=== PATIENT | female | born 1940 | race Two or more races ===

== ENCOUNTER 2017-08-01 15:35 | Inpatient (IN) | payer MEDICARE, OTHER ==
[~2017-08-01] VITALS: Ht 165.1 cm; Wt 57.8 kg
--- NOTE | 2017-08-01 15:40 | NUR ---
BIB [facility] C/O SOB, SPO2=84% ON RA, PLACED ON NR AT 15L/MIN NOW SPO2=99%. TACHYPNEIC. ASSISTED TO HOSPITAL GOWN. PLACED ON MONITOR. PATIENT WAS DISCHARGED YESTERDAY AT [facility] FOR [facility]. DR TABARES AT FOR EVAL.
[2017-08-01 15:54] LABS: BASOPHILS # (AUTO) 0.2 /CMM (0.0-0.2); BASOPHILS % (AUTO) 1.1 % (0.0-2.0); HEMATOCRIT 34 % (33-45); HEMOGLOBIN 10.9 g/dL (11.5-14.8); LYMPHOCYTES # (AUTO) 0.5 /CMM (0.8-4.8); LYMPHOCYTES % (AUTO) 2.9 % (20.0-44.0); MEAN CORPUSCULAR HEMOGLOBIN 25 PG (26.0-33.0); MEAN CORPUSCULAR HGB CONC 32 g/dl (31.0-36.0); MEAN CORPUSCULAR VOLUME 78 fL (82-100); MONOCYTES # (AUTO) 0.8 /CMM (0.1-1.30); MONOCYTES % (AUTO) 4.6 % (2.0-12.0); NEUTROPHILS # (AUTO) 16.6 /CMM (1.8-8.9); NEUTROPHILS % (AUTO) 91.4 % (43.0-81.0); PLATELET COUNT (AUTO) 552 /CMM (150-450); RDW COEFFICIENT OF VARIATION 15.6 (11.5-15.0); RED BLOOD CELL COUNT(AUTO) 4.34 MIL/uL (4.0-5.2); WHITE BLOOD COUNT (AUTO) 18.1 K/uL (4.3-11.0)
[2017-08-01] MEDS ORDERED: IV NS 0.9% 500 ML BAG IV ONE (16:00)
[2017-08-01] MEDS ORDERED: SUCCINYLCHOLINE CHLORIDE 20 MG/ML VIAL IV ONE (16:00)
[2017-08-01] MEDS ORDERED: ETOMIDATE 2 MG/ML VIAL IV ONE (16:00)
--- NOTE | 2017-08-01 16:03 | NUR ---
PATIENT TRANSPORTED FOR CT
[2017-08-01 16:05] LABS: CARBON DIOXIDE 31 mmol/L (21-32); CHLORIDE 100 mmol/L (98-107); CREATININE 0.9 mg/dL (0.6-1.3); GLUCOSE 178 mg/dL (74-106); POTASSIUM 4.7 mmol/L (3.5-5.1); SODIUM SERUM 133 mmol/L (136-145); UREA NITROGEN, BLOOD 23 mg/dL (7-18)
[2017-08-01 16:09] LABS: INR 1.12 (0.87-1.13)
[2017-08-01 16:13] LABS: TROPONIN I < 0.017 ng/mL (0.00-0.056)
[2017-08-01] MEDS ORDERED: NITR0.4T48 SL (16:15)
[2017-08-01] MEDS ORDERED: TRIA15OI2 TP (16:15)
[2017-08-01] MEDS ORDERED: TRAM50TA2 PO (16:15)
[2017-08-01] MEDS ORDERED: GLIP5TAB26 PO (16:15)
[2017-08-01] MEDS ORDERED: PRED20TA PO (16:15)
[2017-08-01] MEDS ORDERED: MONT10TA22 PO (16:15)
[2017-08-01] MEDS ORDERED: SERT50TA PO (16:15)
[2017-08-01] MEDS ORDERED: TRAZ-144 PO (16:15)
[2017-08-01] MEDS ORDERED: KETO120S6 TP (16:15)
[2017-08-01] MEDS ORDERED: OMEP20CA10 PO (16:15)
[2017-08-01] MEDS ORDERED: LACT10SO29 PO (16:15)
[2017-08-01 16:18] LABS: ALANINE AMINOTRANSFERASE 23 U/L (12-78); ALBUMIN 2.3 g/dL (3.4-5.0); ALKALINE PHOSPHATASE 106 U/L (46-116); ASPARTATE AMINOTRANSFERASE 30 U/L (15-37); B-TYPE NATRIURETIC PEPTIDE 2251 PG/ML (0-125); BILIRUBIN,DIRECT 0.1 mg/dL (0.0-0.2); BILIRUBIN,TOTAL 0.1 mg/dL (0.2-1.0); TOTAL PROTEIN, SERUM 7.1 g/dL (6.4-8.2)
--- NOTE | 2017-08-01 16:57 | NUR ---
PAGED DR. CORONA FOR ADMISSION
[2017-08-01] MEDS ORDERED: CEFTRIAXONE 1 G in IV D5W 50 ML IV ONE (17:00)
[2017-08-01] MEDS ORDERED: AZITHROMYCIN 500 MG in IV D5W 250 ML IV ONE (17:00)
--- NOTE | 2017-08-01 17:34 | NUR ---
REPORT GIVEN TO LUIS FERREIRA FOR TONY MS [id number]
--- NOTE | 2017-08-01 17:40 | NUR ---
RN NOTES RECEIVED PT FROM ER, PER ER PT IS DNR DNI, CALLED TO DR CORONA TO CONFIRM WITH ORDERS NOTED. PT NOTED ON NON REBREATHER MASK AT 15LPM NOTED WITH AGONAL BREATHING. FAMILY AT BEDSIDE STATES WANTS PT TO "BE COMFORTABLE AND PASS". FAMILY REFUSED BODY CHECK AT THIS TIME, PT MADE COMFORTABLE, CALL LIGHT WITHIN REACH WILL CONTINUE ADMISSION ORDERS
[2017-08-01 17:45] VITALS: BP 140/85
[2017-08-01 17:51] VITALS: BP 140/85
[2017-08-01] MEDS ORDERED: LORAZEPAM INJ 2 MG/ML VIAL IV PRN (18:30)
[2017-08-01] MEDS ORDERED: MORPHINE SULFATE PF DRIP 250 MG in IV D5W 240 ML IV PRN (18:30)
[2017-08-01] MEDS ORDERED: ONDANSETRON HCL/PF 4 MG/2 ML VIAL IV PRN (18:30)
--- NOTE | 2017-08-01 19:15 | NUR ---
RN NOTES MORPHINE DRIP STARTED ORDERED AT 2MG/HR 2 RN WITNESSED, PT CONTINUES WITH INCREASED RESPIRATION MORPHINE AND ATIVAN TO BE ADMINISTERED ORDERED BY DR. CORONA, FAMILY AT BEDSIDE WITH VERBAL UNDERSTANDING. PT KEPT CLEAN AND COMFORTABLE CALL LIGHT WITHIN, EMOTIONAL SUPPORT PROVIDED, ENDORSED TO NEXT SHIFT FOR CONTINUITY OF CARE
--- NOTE | 2017-08-01 19:30 | NUR ---
RN OPENING NOTES PATIENT IS IN BED, ALERT AND ORIENTED X1, NON VERBAL, FAMILY PRESENT AT BEDSIDE. NO PAIN OR DISCOMFORT NOTED. PATIENT IS ON COMFORT MEASURES. MORPHINE DRIP IS RUNNING AT 2MG/HR. IV ACCESS ON R HAND 20 G PATENT AND INTACT,NO REDNESS OR INFILTRATION NOTED. BED IN LOW AND LOCKED POSITION, SIDE RAILSX2. CALL LIGHT WITHIN EASY REACH. WILL CONTINUE TO MONITOR AND ASSESS DURING THE SHIFT.
[2017-08-01 20:00] VITALS: BP 121/59
[2017-08-02] VITALS: BP 108/67
--- NOTE | 2017-08-02 04:30 | NUR ---
METAPHYSICS TEACHER NOTES RECEIVED CALM ON BED.MORPHINE DRIP AT 2MG CONTINUOSLY.BREATHING NON LABORED.REPOSITION PER PROTOCOL.WILL CONTINUE TO MONITOR STATUS.
--- NOTE | 2017-08-02 06:11 | NUR ---
MS RN NOTES MORPHINE TABLE OPERATOR INCREASED TO 4MG/HR FOR COMFORT
--- NOTE | 2017-08-02 06:12 | NUR ---
SUPERVISOR NOTES NO SIGNIFICANT CHANGE IN STATUS,CALM,DNR/DNI ON NON RE-BREATHER MASK AT 15LITERS.IN NO ACUTE DISTRESS.WILL ENDORSE TO DAY NURSE FOR TONY.
--- NOTE | 2017-08-02 07:05 | NUR ---
RN NOTES PT IS RESTING IN BED, SLEEPING. PT IS ON 15L O2 WITH NONREBREATHER MASK, RESPIRATIONS ARE SLOW AND LABORED. PT HAS LFA IV, ON MORPHINE DRIP AT 4MG/HR. SAFETY MEASURES ARE IN PLACE, CALL LIGHT IS IN REACH. WILL CONTINUE TO MONITOR.
[2017-08-02 08:00] VITALS: BP 102/56
[2017-08-02 12:00] VITALS: BP 82/42
--- NOTE | 2017-08-02 16:00 | NUR ---
RN NOTES PT WAS PRONOUNCED AT 1530 BY JEROMY ODONNELL RN. [facility], DR. CORONA, AND FAMILY (DERRICK, GRANDDAUGHTER) NOTIFIED. POST MORTEM CARE WILL BE PERFORMED.
== END 2017-08-02 15:35 | disposition expired | DRG 177 ==
LOC: ER 15:37 → TELE 17:28 → MED 08-02 15:35
PROVIDERS: ADMIT Internal Medicine; ATTEND Internal Medicine
DX: J69.0 Pneumonitis due to inhalation of food and vomit (principal); J96.00 Acute respiratory failure, unspecified whether with hypoxia or hypercapnia; G93.41 Metabolic encephalopathy; C78.00 Secondary malignant neoplasm of unspecified lung; E11.9 Type 2 diabetes mellitus without complications; D50.9 Iron deficiency anemia, unspecified; C78.6 Secondary malignant neoplasm of retroperitoneum and peritoneum; C56.9 Malignant neoplasm of unspecified ovary; J44.1 Chronic obstructive pulmonary disease with (acute) exacerbation; E78.5 Hyperlipidemia, unspecified; Z51.5 Encounter for palliative care; Z66 Do not resuscitate; Z87.891 Personal history of nicotine dependence
CPT/HCPCS: 36415; 70450-TC; 71045-TC; 80048-TC; 80076-TC; 83605-TC; 83880; 84484-TC; 85025-TC; 85730-TC; 87040-TC; 87081-TC; A4606; J0456; J0696; J2060; J2274; J7040; J7060; Z7610